=== PATIENT | male | born 1965 ===

== ENCOUNTER → 2021-05-06 | Outpatient (REF) | payer BC ==
[2021-05-06 19:38] LABS: CREATININE, URINE 45.3 MG/DL; MALB URINE SIEMENS < 5.0 MG/L
== END ==
LOC: M LAB REF 17:33
PROVIDERS: ATTEND Nurse Practitioner Family
DX: E11.65 Type 2 diabetes mellitus with hyperglycemia (principal)

== ENCOUNTER → 2022-09-05 | Outpatient (REF) | payer BC, OTHER ==
[2022-09-05 18:08] LABS: CREATININE, URINE 43.2 MG/DL; MALB URINE SIEMENS < 3.0 MG/DL; MAU/CREAT RATIO 6.9 MCG/MG (0.0-30.0)
== END ==
LOC: M LAB REF 16:51
PROVIDERS: ATTEND Nurse Practitioner Family
DX: E11.65 Type 2 diabetes mellitus with hyperglycemia (principal)